=== PATIENT | female | born 1945 | race Caucasian/White ===

== ENCOUNTER → 2018-12-13 | Outpatient (CLI) | payer MEDICARE, OTHER ==
[~2018-12-13] MED LIST: ASPI-1441 PO; CALC500T6 PO; CHOL200018 PO; CLON-388 PO; CLON0.255 PO; DIPH-638 PO; FLUD0.1T12 PO; KET10 PO; LEVO50TA80 PO; LEVO75TA73 PO; LOR5/325 PO; OMEP-153 PO; OMEP40CA48 PO; RABE20TA33 PO; THYR15TA6 PO; [UNRECOGNIZED DRUG - CODE] PO; [UNRECOGNIZED DRUG - CODE] PO; [UNRECOGNIZED DRUG - OTHER]
--- NOTE | 2018-12-13 08:49 | RADIOLOGY IMAGING REPORT ---
FACILITY: PATIENT NAME: Tori Denton : 1945 MR: [id number] V: [id number] EXAM DATE: [id number] ORDERING PHYSICIAN: DANIELA FUNG TECHNOLOGIST: Location: [facility] - [place] Patient: Tori Denton : 1945 Visit/Account:[id number] Date of Sevice: 12/13/2018 EXAMINATION: MRI Lumbar spine without intravenous contrast HISTORY: Low back pain. COMPARISON: CT abdomen and pelvis dated 09/13/2017. TECHNIQUE: Multi-planar, multi-sequence lumbar spine MRI was performed without intravenous contrast administration. FINDINGS: Alignment: Convex rightward curvature with 7 mm of right lateral listhesis of L3 over L4. Vertebral marrow signal: Discogenic bone marrow edema at L2-L3 and L3-L4. Bilateral L5 pars defects, better seen on the prior abdomen and pelvis CT dated 09/13/2017. Distal thoracic cord: Negative. Conus: negative, terminates at L1 Cauda equina: Negative. Paravertebral soft tissues: Negative. Visualized abdominal and pelvic structures: Negative. Disc Spaces: Lower thoracic spine: Negative. L1-2: Negative. L2-3: Moderate to severe disc height loss with circumferential disc bulge and facet hypertrophy. Mode rate left lateral recess stenosis. Mild right and moderate left neural foraminal stenosis. L3-4: Moderate to severe disc height loss with circumferential disc bulge and facet hypertrophy. Mild bilateral lateral recess stenosis. Moderate bilateral neural foraminal stenosis. L4-5: Negative. L5-S1: Negative. IMPRESSION: 1. Degenerative disc disease and facet hypertrophy at L2-L3 and L3-L4. 2. Convex rightward curvature of 7 mm of right lateral listhesis of L3 over L4. 3. Bilateral L5 pars defects, better seen on the prior abdomen and pelvis CT dated 09/13/2017. Report Dictated By: Enrico Valdivia MD at 12/13/2018 8:39 AM Report E-Signed By: Enrico Valdivia MD at 12/13/2018 8:45 AM WSN:[email or web address]
--- NOTE | 2018-12-13 08:56 | RADIOLOGY IMAGING REPORT ---
FACILITY: [facility] - [place] PATIENT NAME: Tori Denton : 1945 MR: [id number] V: [id number] EXAM DATE: ORDERING PHYSICIAN: DANIELA FUNG TECHNOLOGIST: Location: [facility] Patient: Tori Denton : 1945 Visit/Account:[id number] Date of Sevice: 12/13/2018 Exam type: KNEE 3 VIEWS BILATERAL History: Knee pain Comparison: None. Findings: Left knee: Postoperative changes are noted from what appears to be an ACL reconstruction. Alignment of the join t appears normal. Patient is mildly osteopenic. No appreciable knee effusion or fracture. Right knee: There is no acute fracture of the right knee. Joint spaces preserved. There may be a trace knee eff usion. Patient is mildly osteopenic. IMPRESSION: 1. Postoperative changes are noted from ACL reconstruction of the left knee. No acute fracture or d islocation of left knee. 2. No acute fracture or osseous abnormality of the right knee. Report Dictated By: Bear Cisneros MD at 12/13/2018 8:49 AM Report E-Signed By: Bear Cisneros MD at 12/13/2018 8:51 AM WSN:[email or web address]
== END ==
LOC: MRI 07:31
PROVIDERS: ATTEND Pain Medicine Pain Medicine
DX: Z98.890 Other specified postprocedural states (principal); M48.061 Spinal stenosis, lumbar region without neurogenic claudication; M41.86 Other forms of scoliosis, lumbar region
CPT/HCPCS: 72148